=== PATIENT | male | born 1980 | race African-American/Black ===

== ENCOUNTER 2017-04-15 22:49 | Emergency (ER) | payer MEDICAID ==
[~2017-04-15 22:49] MED LIST: BUTATAB6 PEG; COMMODE 3-IN-11 MIS; FISH1000 PO; FOLI1TAB6 PO; GETGO ROLLING W1 MI1; LEVE500S PEG; PERC5TAB12 PO; PRAV40TA2 NG; WHEEMIS3; [UNRECOGNIZED DRUG - OTHER]
[2017-04-15 22:50] VITALS: BP 116/65; PULSE 108; RESP 16; TEMP 99.2; O2SAT 96
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
[2017-04-16] MEDS ORDERED: MORPHINE SULFATE 8 MG/ML INJ IM ONE (01:15)
[2017-04-16] MEDS ORDERED: MORPHINE SULFATE 4 MG/ML INJ IM ONE (01:45)
--- NOTE | 2017-04-16 02:26 | RADRPT ---
EXAM DATE/TIME: 04/16/2017 02:07 [place] COMPARISON: No previous studies available for comparison. INDICATIONS : G tube placement. MEDICAL HISTORY : Sickle Cell disease. SURGICAL HISTORY : Cholecystectomy. ENCOUNTER: Initial ACUITY: 1 day PAIN SCORE: 0/10 LOCATION: upper quadrant abdomen. FINDINGS: Single supine view of the abdomen demonstrates G-tube overlying the left upper quadrant. The recently injected contrast material fills the stomach. No leak is identified. No organomegaly or abnormal ben cifications are identified. Bones demonstrate no acute finding. Lung bases are clear. CONCLUSION: G-tube in expected position in the stomach. There is no leak. Gallito Keys MD on April 16, 2017 at 2:23 Board Certified Radiologist. This report was verified electronically.
== END 2017-04-16 02:30 | disposition home or self-care (01) ==
LOC: NEPD 22:49
DX: K94.20 Gastrostomy complication, unspecified (principal); F41.9 Anxiety disorder, unspecified; R00.0 Tachycardia, unspecified; K21.9 Gastro-esophageal reflux disease without esophagitis; I27.2 Other secondary pulmonary hypertension; F17.200 Nicotine dependence, unspecified, uncomplicated; Z79.899 Other long term (current) drug therapy
CPT/HCPCS: 43760; 74000; 96372; 99284; J2270

== ENCOUNTER 2018-03-17 16:27 | Inpatient (IN) | payer MEDICAID ==
[~2018-03-17] VITALS: Ht 188 cm; Wt 70.0 kg
[~2018-03-17 16:27] MED LIST changes: -FISH1000 PO
[2018-03-17 16:33] VITALS: BP 118/58; PULSE 108; RESP 16; TEMP 100.3; O2SAT 99
[2018-03-17] MEDS ORDERED: OXYC15TA PO (18:38)
[2018-03-17] MEDS ORDERED: GABA300C5 PO (18:38)
[2018-03-17 19:13] VITALS: O2SAT 88
[2018-03-17 19:15] VITALS: BP 131/61; PULSE 94; RESP 16; O2SAT 94
[2018-03-17] MEDS ORDERED: PRAV40TA2 PO (19:19)
[2018-03-17] MEDS ORDERED: LEVE500 PO (19:19)
[2018-03-17] MEDS ORDERED: BUTA1CAP PO (19:19)
[2018-03-17] MEDS ORDERED: SODIUM CHLORIDE 0.9% FLUSH 10 ML FLUSH IVF PRN (19:30)
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
[2018-03-17] MEDS ORDERED: SODIUM CHLOR 0.9% 250 ML INJ 250 ML IV ONE ×2 (19:45→20:30)
[2018-03-17 20:12] LABS: AUTOMATED NEUTROPHIL # 9.6 TH/MM3 (1.8-7.7); BASOPHIL # 0.2 TH/MM3 (0-0.2); BASOPHIL % 1.5 % (0.0-2.0); EOSINOPHIL # 0.2 TH/MM3 (0-0.4); LYMPH % 28.6 % (9.0-44.0); LYMPHOCYTE # 4.5 TH/MM3 (1.0-4.8); MEAN CELL VOLUME 91.8 FL (80.0-100.0); MEAN CORPUSCULAR HEMOGLOBIN 32.7 PG (27.0-34.0); MEAN CORPUSCULAR HGB CONC 35.6 % (32.0-36.0); MEAN PLATELET VOLUME 11.1 FL (7.0-11.0); MONO % 7.3 % (0.0-8.0); MONOCYTE # 1.1 TH/MM3 (0-0.9); NEUT % 61.6 % (16.0-70.0); PLATELET COUNT 200 TH/MM3 (150-450); RED BLOOD COUNT 1.64 MIL/MM3 (4.50-5.90); RED CELL DISTRIBUTION WIDTH 27.2 % (11.6-17.2); RETIC # 259.5 MIL/L (20.0-150.0); RETIC % 15.8 % (0.4-3.0); WHITE BLOOD COUNT 15.6 TH/MM3 (4.0-11.0)
[2018-03-17 20:13] LABS: INTERNATIONAL NORMALIZED RATIO 1.2 RATIO; PROTHROMBIN TIME - PATIENT 11.8 SEC (9.8-11.6)
[2018-03-17 20:19] LABS: ALT (GPT) 23 U/L (12-78)
[2018-03-17 20:20] LABS: ALBUMIN 3.6 GM/DL (3.4-5.0); AST (GOT) 59 U/L (15-37); BICARBONATE 25.6 MEQ/L (21.0-32.0); BLOOD UREA NITROGEN 15 MG/DL (7-18); CALCIUM 8.1 MG/DL (8.5-10.1); CHLORIDE 108 MEQ/L (98-107); CREATININE 0.96 MG/DL (0.60-1.30); GLOMERULAR FILTRATION RATE 106 ML/MIN (>89); GLUCOSE,RANDOM 106 MG/DL (74-106); MAGNESIUM 2.2 MG/DL (1.5-2.5); SODIUM (NA) 140 MEQ/L (136-145)
[2018-03-17 20:22] LABS: ALKALINE PHOSPHATASE 57 U/L (45-117); C-REACTIVE PROTEIN 0.54 MG/DL (0.00-0.30); TOTAL BILIRUBIN ADULT 2.2 MG/DL (0.2-1.0); TOTAL PROTEIN 6.7 GM/DL (6.4-8.2); TROPONIN I LESS THAN 0.02 NG/ML (0.02-0.05)
[2018-03-17 20:23] LABS: HEMATOCRIT 15.1 % (39.0-51.0); HEMOGLOBIN 5.4 GM/DL (13.0-17.0)
--- NOTE | 2018-03-17 20:28 | RADRPT ---
EXAM DATE: 03/17/2018 7:54 PM EDT AGE/SEX: 37 years / Male INDICATIONS: Short of breath. CLINICAL DATA: This is the patient's initial encounter. Patient reports that signs and symptoms have been present for 1 day and indicates a pain score of 0/10. MEDICAL/SURGICAL HISTORY: Sickle Cell disease. Hypertension. . Tracheostomy. COMPARISON: [facility] [place], CHEST SINGLE AP, 03/30/2017. . FINDINGS: A single AP view of the chest demonstrates the lungs to be symmetrically aerated without evidence of mass, infiltrate or effusion. The cardiomediastinal contours are unremarkable. Osseous structures a re intact. CONCLUSION: Negative examination. Electronically signed by: Lamont Grande MD 03/17/2018 8:27 PM EDT
[2018-03-17 20:49] LABS: BANDS 5 % (0-6); CORRECTED NUCLEATED RBC 6 /100 WBC (0-0); LYMPHOCYTES 30 % (9-44); METAMYELOCYTES 1 % (0-1); MONOCYTES 3 % (0-8); NEUTROPHIL # MANUAL DIFF 10.1 TH/MM3 (1.8-7.7); NUCLEATED RED BLOOD CELL 6 (0-0); POLYS (SEG NEUTROPHILS) 59 % (16-70)
[2018-03-17 20:51] LABS: OVALOCYTES 1+ (NORMAL); SICKLE CELLS 3+ (NORMAL)
[2018-03-17] MEDS ORDERED: IOHEXOL 350 MG/ML 10 ML VIAL (for RAD DIAG) IVCONTRAST ONE (21:18)
--- NOTE | 2018-03-17 21:40 | RADRPT ---
EXAM DATE: 03/17/2018 9:17 PM EDT AGE/SEX: 37 years / Male INDICATIONS: Chest pain. CLINICAL DATA: This is the patient's initial encounter. Patient reports that signs and symptoms have been present for 1 day and indicates a pain score of 8/10. MEDICAL/SURGICAL HISTORY: Hypertension. Sickle Cell disease. Gastroesophageal reflux disease. Cho lecystectomy. RADIATION DOSE: 8.51 CTDI (mGy) COMPARISON: No prior exams available for comparison. TECHNIQUE: Volumetric scanning was performed using a multi-row detector CT scanner during bolus infu stephany of 75 ml Omnipaque 350 (iohexol) nonionic water-soluble contrast as a cumulative dose for multi ple exams. The data was post processed with a variety of visualization algorithms including full volu me maximum intensity projection and sliding thin slab reformation. Using automated exposure control and adjustment of the mA and/or kV according to patient size, radiation dose was kept as low as reaso nably achievable to obtain optimal diagnostic quality images. DICOM format image data is available e lectronically for review and comparison. FINDINGS: The examination is of limited diagnostic quality due to bolus timing issues. There is no large or ivania tral pulmonary embolus. The third order and distal branches are not adequately visualized. The heart is normal in size. The thoracic aorta is intact. No hilar or mediastinal adenopathy is seen . No axillary adenopathy is identified. The visualized pulmonary parenchyma is clear. Incidental note is made of what is likely a sebaceous cyst along the left chest wall anteriorly measu ring 2.1 x 0.8 cm. The visualized bony structures are grossly intact. CONCLUSION: 1. The exam is somewhat limited due to bolus timing issues. No large or central pulmonary embolus is identified. The distal branches are not adequately visualized. 2. The lungs are clear. Electronically signed by: Lamont Grande MD 03/17/2018 9:39 PM EDT
[2018-03-17 21:53] LABS: BILIRUBIN, URINE NEG (NEG); BLOOD, URINE MOD (NEG); GLUCOSE,URINE NEG (NEG); KETONE, URINE NEG (NEG); NITRITE,URINE NEG (NEG); URINE COLOR YELLOW (YELLW/STRAW); URINE LEUKOCYTE ESTERASE NEG (NEG)
[2018-03-17 22:03] VITALS: BP 157/120; PULSE 105; RESP 16; TEMP 98.8; O2SAT 100
[2018-03-17 22:20] VITALS: BP 133/61; PULSE 89; RESP 16; TEMP 98.9; O2SAT 100
[2018-03-17] MEDS ORDERED: SODIUM CHLOR 0.9% 1000 ML INJ 1,000 ML IV SCH (22:28)
[2018-03-17] MEDS ORDERED: SENNOSIDES 8.6 MG TAB PO PRN (22:30)
[2018-03-17] MEDS ORDERED: SODIUM CHLORIDE 0.9% FLUSH 10 ML FLUSH IV FLUSH PRN (22:30)
[2018-03-17] MEDS ORDERED: MAGNESIUM HYDROXIDE SUSP 30 ML CUP PO PRN (22:30)
[2018-03-17] MEDS ORDERED: ACETAMINOPHEN 325 MG TAB PO PRN (22:30)
[2018-03-17] MEDS ORDERED: BISACODYL 10 MG SUPP RECTAL PRN (22:30)
[2018-03-17] MEDS ORDERED: LACTULOSE SYRUP 20 GM/30 ML CUP PO PRN (22:30)
[2018-03-17] MEDS ORDERED: ONDANSETRON ODT 4 MG TAB PO PRN (22:30)
[2018-03-17] MEDS ORDERED: NALOXONE HCL 0.4 MG/ML AMP IV PUSH PRN (22:30)
--- NOTE | 2018-03-17 22:45 | HHI.HP ---
[facility] Service [facility] Primary Care Physician Severiano Patel D.O. Admission Diagnosis Sickle cell anemia, symptomatic anemia, cp r/o acs vs pe Diagnoses: Travel History International Travel<30 Days: No Contact w/Intl Traveler <30 Da: No Traveled to Known Affected Are: No History of Present Illness 37-year-old male with a past medical history significant for sickle cell disease and seizure disorder presents the emergency department for evaluation of fatigue. The patient reports he has been feeling tired and sluggish 1 week. He denies any dizziness or associated lightheadedness. He reports a pain /pressure that he describes as a cramping sensation in his left chest and upper shoulder. The patient also complains of a chronic ulcer on his left ankle. He denies any shortness of breath. No abdominal pain. No nausea/vomiting/ diarrhea. No fever/chills Review of Systems Except as stated in HPI: all other systems reviewed are Neg Past Family Social History Past Medical History Sickle cell disease Seizure disorder Past Surgical History Reconstructive facial surgery Several incision and drainages Cholecystectomy Craniotomy for aneurysm repair Reported Medications Reported Meds & Active Scripts Active Folic Acid 1 Mg Tablet 1 Mg PO DAILY Reported Pravastatin 40 Mg Tab 40 Mg PO DAILY Keppra (Levetiracetam) 500 Mg Tab 500 Mg PO BID Fioricet (Efpmmjozpa-Bzzeldvsaqqvr-Jyibfnfa) 50-300-40 Mg Cap 1 Cap PO Q4H PRN Gabapentin 300 Mg Cap 300 Mg PO BID Oxycodone (Oxycodone HCl) 15 Mg Tab 15 Mg PO Q6HR Allergies: Coded Allergies: No Known Allergies (Verified Adverse Reaction, Unknown, 03/17/18) Family History Mother with diabetes mellitus Social History Smokes marijuana daily. Denies alcohol and tobacco. Physical Exam Vital Signs Vital Signs Date Time Temp Pulse Resp B/P (MAP) Pulse Ox O2 Delivery O2 Flow Rate FiO2 03/17/18 22:20 98.9 89 16 133/61 100 03/17/18 22:03 98.8 105 16 157/120 100 03/17/18 19:15 94 16 131/61 (84) 94 Nasal Cannula 2.00 6/26/18 19:13 88 Room Air 03/17/18 18:39 92 17 98 Room Air 03/17/18 16:33 100.3 108 16 118/58 (78) 99 Physical Exam GENERAL: -[place] male sitting up in bed SKIN: 3 cm ulceration to the lateral aspect of the left ankle that is dry and nondraining. No surrounding erythema or fluctuance. HEAD: Atraumatic. Normocephalic. No temporal or scalp tenderness. EYES: Pupils equal round and reactive. Extraocular motions intact. No scleral icterus. No injection or drainage. ENT: Nose without bleeding, purulent drainage or septal hematoma. Throat without erythema, tonsillar hypertrophy or exudate. Uvula midline. Airway patent. NECK: Trachea midline. No JVD or lymphadenopathy. Supple, nontender, no meningeal signs. CARDIOVASCULAR: Regular rate and rhythm without murmurs, gallops, or rubs. RESPIRATORY: Clear to auscultation. Breath sounds equal bilaterally. No wheezes , rales, or rhonchi. GASTROINTESTINAL: Abdomen soft, non-tender, nondistended. No hepato-splenomegaly , or palpable masses. No guarding. MUSCULOSKELETAL: Extremities without clubbing, cyanosis, or edema. No joint tenderness, effusion, or edema noted. No calf tenderness. NEUROLOGICAL: Awake and alert. Cranial nerves II through XII intact. Motor and sensory grossly within normal limits. Normal speech. Laboratory Laboratory Tests Test 03/17/18 18:50 03/17/18 21:20 White Blood Count 15.6 Red Blood Count 1.64 Hemoglobin 5.4 Hematocrit 15.1 Mean Corpuscular Volume 91.8 Mean Corpuscular Hemoglobin 32.7 Mean Corpuscular Hemoglobin Concent 35.6 Red Cell Distribution Width 27.2 Platelet Count 200 Mean Platelet Volume 11.1 Neutrophils (%) (Auto) 61.6 Lymphocytes (%) (Auto) 28.6 Monocytes (%) (Auto) 7.3 Eosinophils (%) (Auto) 1.0 Basophils (%) (Auto) 1.5 Neutrophils # (Auto) 9.6 Lymphocytes # (Auto) 4.5 Monocytes # (Auto) 1.1 Eosinophils # (Auto) 0.2 Basophils # (Auto) 0.2 CBC Comment AUTO DIFF Differential Total Cells Counted 100 Neutrophils % (Manual) 59 Band Neutrophils % 5 Lymphocytes % 30 Monocytes % 3 Eosinophils % 2 Neutrophils # (Manual) 10.1 Metamyelocytes 1 Nucleated Red Blood Cells 6 Differential Comment FINAL DIFF MANUAL Platelet Estimate NORMAL Platelet Morphology Comment ENLARGED Polychromasia 12.0 Spherocytes Sickle Cells 3+ Ovalocytes 1+ Reticulocyte Count 15.8 Absolute Reticulocyte Count 259.5 Prothrombin Time 11.8 Prothromb Time International Ratio 1.2 Activated Partial Thromboplast Time 23.4 Blood Urea Nitrogen 15 Creatinine 0.96 Random Glucose 106 Total Protein 6.7 Albumin 3.6 Calcium Level 8.1 Magnesium Level 2.2 Alkaline Phosphatase 57 Aspartate Amino Transf (AST/SGOT) 59 Alanine Aminotransferase (ALT/SGPT) 23 Total Bilirubin 2.2 Sodium Level 140 Potassium Level 4.4 Chloride Level 108 Carbon Dioxide Level 25.6 Anion Gap 6 Estimat Glomerular Filtration Rate 106 Total Creatine Kinase 41 Troponin I LESS THAN 0.02 C-Reactive Protein 0.54 B-Type Natriuretic Peptide 61 Lipase 67 Urine Color YELLOW Urine Turbidity CLEAR Urine pH 6.0 Urine Specific [place] 1.003 Urine Protein 100 Urine Glucose (UA) NEG Urine Ketones NEG Urine Occult Blood MOD Urine Nitrite NEG Urine Bilirubin NEG Urine Urobilinogen LESS THAN 2 Urine Leukocyte Esterase NEG Microscopic Urinalysis Comment CULT NOT INDICATED Date/Time Source Procedure Growth Status 03/17/18 21:30 Blood Peripheral Aerobic Blood Culture Pending Received 03/17/18 21:30 Blood Peripheral Anaerobic Blood Culture Pending Received 03/17/18 19:25 Wound Ankle Gram Stain Pending Received 03/17/18 19:25 Wound Ankle Wound Culture Pending Received Result Diagram: 03/17/[id number]/17/[id number] Caprini VTE Risk Assessment Caprini VTE Risk Assessment: No/Low Risk (score <= 1) Caprini Risk Assessment Model Point Value = 1 Point Value = 2 Point Value = 3 Point Value = 5 Age 41-60 Minor surgery BMI > 25 kg/m2 Swollen legs Varicose veins or History of unexplained or recurrent spontaneous Oral contraceptives or hormone replacement Sepsis (< 1 month) Serious lung disease, including pneumonia (< 1 month) Abnormal pulmonary function Acute myocardial infarction Congestive heart failure (< 1 month) History of inflammatory bowel disease Medical patient at bed rest Age 61-74 Arthroscopic surgery Major open surgery (> 45 min) Laparoscopic surgery (> 45 min) Malignancy Confined to bed (> 72 hours) Immobilizing plaster cast Central venous access Age >= 75 History of VTE Family history of VTE Factor V Leiden Prothrombin [id number] Lupus anticoagulant Anticardiolipin antibodies Elevated serum homocysteine Heparin-induced thrombocytopenia Other congenital or acquired thrombophilia Stroke (< 1 month) Elective arthroplasty Hip, pelvis, or leg fracture Acute spinal cord injury (< 1 month) Prophylaxis Regimen Total Risk Factor Score Risk Level Prophylaxis Regimen 0-1 Low Early ambulation 2 Moderate Order ONE of the following: *Sequential Compression Device (SCD) *Heparin 5000 units SQ BID 3-4 Higher Order ONE of the following medications: *Heparin 5000 units SQ TID *Enoxaparin/Lovenox 40 mg SQ daily (WT < 150 kg, CrCl > 30 mL/min) *Enoxaparin/Lovenox 30 mg SQ daily (WT < 150 kg, CrCl > 10-29 mL/min) *Enoxaparin/Lovenox 30 mg SQ BID (WT < 150 kg, CrCl > 30 mL/min) AND/OR *Sequential Compression Device (SCD) 5 or more Highest Order ONE of the following medications: *Heparin 5000 units SQ TID (Preferred with Epidurals) *Enoxaparin/Lovenox 40 mg SQ daily (WT < 150 kg, CrCl > 30 mL/min) *Enoxaparin/Lovenox 30 mg SQ daily (WT < 150 kg, CrCl > 10-29 mL/min) *Enoxaparin/Lovenox 30 mg SQ BID (WT < 150 kg, CrCl > 30 mL/min) AND *Sequential Compression Device (SCD) Assessment and Plan Assessment and Plan Assessment/plan: 1. Symptomatic anemia H&H 5.4/15.1 Transfuse 2 units packed red blood cells 2. Chest pain Initial troponin negative EKG showed normal sinus rhythm without ST segment elevations or depressions, personally reviewed ACS rule out pending; serial troponins/EKGs 3. Seizure disorder Continue home Keppra 4. Sickle cell disease Continue pain control with home oxycodone Continue folic acid FEN Regular diet Electrolytes: Monitor and replete as needed Physician Certification 2 Midnight Certification Type: Admission for Inpatient Services Order for Inpatient Services The services are ordered in accordance with Medicare regulations or non- Medicare payer requirements, as applicable. In the case of services not specified as inpatient-only, they are appropriately provided as inpatient services in accordance with the 2-midnight benchmark. Estimated LOS (days): 2 2 days is the estimated time the patient will need to remain in the hospital, assuming treatment plan goals are met and no additional complications. Post-Hospital Plan: Not yet determined Margarita Cartagena MD Mar 17, 2018 22:45
[2018-03-17 23:08] VITALS: BP 105/53; PULSE 92; RESP 16; O2SAT 100
[2018-03-18] VITALS: BP 135/63; PULSE 78; RESP 17; TEMP 98.4; O2SAT 98
[2018-03-18 00:35] VITALS: BP 135/62; PULSE 77; RESP 18; TEMP 98.5; O2SAT 97
[2018-03-18 01:13] VITALS: BP 125/58; PULSE 78; RESP 18; TEMP 98.8; O2SAT 98
[2018-03-18 01:32] VITALS: BP 140/65; PULSE 75; RESP 20; TEMP 98.5; O2SAT 100
[2018-03-18] MEDS ORDERED: PRAVASTATIN SOD 40 MG TAB PO SCH (09:00)
[2018-03-18] MEDS ORDERED: FOLIC ACID 1 MG TAB PO SCH (09:00)
[2018-03-18] MEDS ORDERED: GABAPENTIN 300 MG CAP PO SCH (09:00)
[2018-03-18] MEDS ORDERED: SODIUM CHLORIDE 0.9% FLUSH 10 ML FLUSH IV FLUSH SCH (09:00)
[2018-03-18] MEDS ORDERED: levETIRAcetam 500 MG TAB PO SCH (09:00)
[2018-03-18] MEDS ORDERED: DOCUSATE SODIUM 50 MG/SENNA 8.6 MG TAB PO SCH (09:00)
--- NOTE | 2018-03-18 20:50 | EKG ---
Date Performed: 03/17/2018 Time Performed: 20:21:48 PTAGE: 37 years EKG: Sinus rhythm NONSPECIFIC T-WAVE ABNORMALITY ABNORMAL ECG NO PREVIOUS TRACING DOCTOR: Aimee Pierre Interpretating Date/Time 03/18/2018 20:49:18
== END 2018-03-18 03:00 | disposition left against medical advice (07) | DRG 812 ==
LOC: NEPC 16:27 → NEDA 20:46 → N07B 23:21
PROVIDERS: ADMIT Family Medicine; ATTEND Family Medicine
PROC: 30233N1 Transfusion of Nonautologous Red Blood Cells into Peripheral Vein, Percutaneous Approach (ICD-10-PCS; principal; 2018-03-17)
DX: D57.1 Sickle-cell disease without crisis (principal); E78.5 Hyperlipidemia, unspecified; F12.90 Cannabis use, unspecified, uncomplicated; G40.909 Epilepsy, unspecified, not intractable, without status epilepticus; R07.9 Chest pain, unspecified; K21.9 Gastro-esophageal reflux disease without esophagitis
CPT/HCPCS: 36430; 71045; 71275; 80053; 81001; 82550; 83690; 83735; 83880; 84484; 85007; 85027; 85044; 85610; 85730; 86140; 86403; 86850; 86900; 86901; 86920; 87040; 87070; 87077; 87186; 87205; 93005; J7050; P9016; Q9967

== ENCOUNTER 2018-09-13 23:02 | Inpatient (IN) ==
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
[2018-09-14] MEDS ORDERED: HYDROmorphone PF Inj 1 MG/ML Ampul IV.PUSH ONE (00:23)
[2018-09-14] MEDS ORDERED: Sod Chloride 0.9% Inj 1,000 ML IV.SIG SCH (00:30)
--- NOTE | 2018-09-14 00:48 | XR ---
EXAM DATE: 09/14/2018 12:44 AM EST AGE/SEX: 37 years / Male INDICATIONS: Sickle cell crisis. Weakness. CLINICAL DATA: This is the patient's subsequent encounter. Patient reports that signs and symptoms h ave been present for 1 day and indicates a pain score of 6/10. MEDICAL/SURGICAL HISTORY: Sickle Cell disease. None. COMPARISON: [facility] – [place], 03/17/2018. . FINDINGS: Minimal linear opacities noted in the lower lung zones bilaterally. The cardiomediastinal contours ar e stable. Osseous structures are intact. CONCLUSION: 1. Minimal probable atelectasis in the lower lung zones bilaterally. Electronically signed by: Checo Best MD Board Certified Radiologist 09/14/2018 12:[address]
[2018-09-14 01:01] LABS: Baso # (Auto) 0.2 th/mm3 (0.0-0.2); Baso % (Auto) 0.9 % (0.0-2.0); Eos # (Auto) 0.1 th/mm3 (0.0-0.4); Eos % (Auto) 0.6 % (0.0-4.0); Lymph # (Auto) 4.2 th/mm3 (1.0-4.8); Lymph % (Auto) 20.7 % (9.0-44.0); Mean Corpuscular HGB Conc 35.7 % (32.0-36.0); Mean Corpuscular Hemoglobin 36.1 pg (27.0-34.0); Mean Corpuscular Volume 101.2 fL (80.0-100.0); Mean Platelet Volume 10.5 fL (7.0-11.0); Mono # (Auto) 1.6 th/mm3 (0.0-0.9); Mono % (Auto) 7.8 % (0.0-8.0); Neut # (Auto) 14.1 th/mm3 (1.8-7.7); Platelet Count 204 th/mm3 (150-450); Red Blood Count 1.52 mil/mm3 (4.50-5.90); Red Cell Distribution Width 29.7 % (11.6-17.2); White Blood Count 20.2 th/mm3 (4.0-11.0)
[2018-09-14 01:09] LABS: Hematocrit 15.4 % (39.0-51.0); Hemoglobin 5.5 gm/dL (13.0-17.0)
[2018-09-14 01:20] LABS: Alkaline Phosphatase 71 U/L (45-117); Total Protein 6.7 g/dL (6.4-8.2)
[2018-09-14 01:21] LABS: Alanine Aminotransferase 34 U/L (12-78); Albumin 3.4 g/dL (3.4-5.0); Anion Gap 3 meq/L (5-15); Aspartate Aminotransferase 66 U/L (15-37); Blood Urea Nitrogen 14 mg/dL (7-18); Calcium 8.2 mg/dL (8.5-10.1); Carbon Dioxide 30.2 meq/L (21.0-32.0); Chloride 105 meq/L (98-107); Glomerular Filtration Rate Greater Than 89 mL/min (>89); Glucose,Random 101 mg/dL (74-106); Potassium 4.9 meq/L (3.5-5.1); Sodium 138 meq/L (136-145)
[2018-09-14 01:32] LABS: Eosinophils 1 % (0-4); Lymphocytes 22 % (9-44); Monocytes 4 % (0-8); Myelocytes 1 % (0-0); Tallied Nucleated RBC 18 (0-0)
[2018-09-14 01:37] LABS: Howell-Jolly Bodies Present; Polychromasia 4.9 % (0.0-1.9); Sickle Cells 3+; Target Cells 1+
[2018-09-14 01:40] LABS: Ovalocytes 1+
[2018-09-14 01:41] LABS: Platelet Estimate Normal (Normal)
[2018-09-14] MEDS ORDERED: Sodium Chlor 0.9% Inj 250 ML IV.SIG SCH (02:00)
[2018-09-14] MEDS ORDERED: Acetaminophen 325 MG Tablet PO PRN (02:46)
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
[2018-09-14 04:49] LABS: Bilirubin,Urine Negative (Negative); Clarity,Urine Clear (Clear); Color,Urine Yellow (Yellw/Straw); Glucose,Urine (UA) Negative (Negative); Leukocyte Esterase,Urine Negative (Negative); Mucus,Urine Few /lpf (Occasional); Nitrite,Urine Negative (Negative); Specific Gravity,Urine 1.004 (1.002-1.035)
[2018-09-14] MEDS: HYDROmorphone PF Inj 2 MG/ML Vial IV.PUSH PRN ×4 (05:06→19:33)
[2018-09-14] MEDS: Folic Acid 1 MG Tablet PO SCH (08:37)
[2018-09-14] MEDS: Hydroxyurea 500 MG Capsule PO SCH ×2 (08:37→21:45)
[2018-09-14] MEDS: Gabapentin 300 MG Capsule PO SCH ×2 (08:38→21:45)
[2018-09-14] MEDS ORDERED: Influenza (Quadrivalent) Vaccine 0.5 ML Syringe IM ONE (09:00)
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
[2018-09-14] MEDS ORDERED: Sodium Chloride 0.45 % Inj 1,000 ML IV.CONT SCH (13:30)
[2018-09-14] MEDS ORDERED: Heparin - SQ 10,000 UNITS/ML Vial SQ SCH (14:00)
--- NOTE | 2018-09-14 16:12 | P.PNADD ---
Addendum to Inpatient Note Reason for Addendum: Additional Documentation Additional information: Patient sitting in bed, awake and alert. Has a chronic ulcer on the lateral aspect of his left ankle with no obvious drainage or erythema Clear lungs bilaterally, unlabored breathing Heart sounds regular rate and rhythm, no murmurs Continue pain control for sickle cell crisis
[2018-09-14] MEDS ORDERED: NIFEdipine 10 MG Capsule PO ONE (19:00)
[2018-09-14] MEDS: NIFEdipine 10 MG Capsule PO SCH (22:16)
[2018-09-15] MEDS: HYDROmorphone PF Inj 2 MG/ML Vial IV.PUSH PRN ×3 (01:17→09:51)
[2018-09-15 07:09] LABS: Baso # (Auto) 0.1 th/mm3 (0.0-0.2); Baso % (Auto) 0.7 % (0.0-2.0); Eos # (Auto) 0.3 th/mm3 (0.0-0.4); Eos % (Auto) 2.3 % (0.0-4.0); Lymph # (Auto) 3.3 th/mm3 (1.0-4.8); Lymph % (Auto) 27.2 % (9.0-44.0); Mean Corpuscular Hemoglobin 36.3 pg (27.0-34.0); Mean Corpuscular Volume 100.3 fL (80.0-100.0); Mean Platelet Volume 10.4 fL (7.0-11.0); Mono # (Auto) 0.8 th/mm3 (0.0-0.9); Mono % (Auto) 6.8 % (0.0-8.0); Neut # (Auto) 7.8 th/mm3 (1.8-7.7); Platelet Count 201 th/mm3 (150-450); Red Blood Count 2.08 mil/mm3 (4.50-5.90); Red Cell Distribution Width 25.5 % (11.6-17.2); White Blood Count 12.3 th/mm3 (4.0-11.0)
[2018-09-15 07:24] LABS: Mean Corpuscular HGB Conc 36.2 % (32.0-36.0)
[2018-09-15 07:27] LABS: Hematocrit 20.9 % (39.0-51.0); Hemoglobin 7.6 gm/dL (13.0-17.0)
[2018-09-15 07:33] LABS: Anion Gap 5 meq/L (5-15); Blood Urea Nitrogen 13 mg/dL (7-18); Calcium 7.9 mg/dL (8.5-10.1); Carbon Dioxide 29.7 meq/L (21.0-32.0); Chloride 107 meq/L (98-107); Glomerular Filtration Rate Greater Than 89 mL/min (>89); Glucose,Random 92 mg/dL (74-106); Potassium 4.4 meq/L (3.5-5.1); Sodium 142 meq/L (136-145)
--- NOTE | 2018-09-15 08:40 | P.PN ---
Subjective Interval history: Follow up for sickle cell crisis with anemia. Patient reports feeling much better today. He states his pain is back to his baseline. He denies any significant chest pain or shortness of breath. Denies any fevers or chills. He is requesting be discharged. Discussed his elevated blood pressures, he believes this is secondary to pain and he has never had any blood pressure issues prior to this visit. Instructed the patient to check his blood pressures after discharge and keep a log, report to PCP. We will also give the patient prescription for Norvasc, discussed with the patient. He states he is established with a PCP and with his potash flaker Dr. Patterson. Physical Exam Vital signs: Vital Signs 09/14/18 08:44 09/14/18 20:00 09/15/18 00:00 Temperature 97.6 F 99.3 F 97.6 F Pulse Rate 90 88 82 Respiratory Rate 18 20 18 Blood Pressure 166/82 H 153/87 H 134/67 Pulse Oximetry 95 95 97 09/15/18 04:00 09/15/18 04:52 Temperature 97.4 F L Pulse Rate 76 78 Respiratory Rate 18 Blood Pressure 151/67 H Pulse Oximetry 95 Intake & Output 09/14/18 09/15/18 09/15/18 18:59 06:59 18:59 Intake Total 250 / 250 Output Total 900 / 900 Balance 250 / 250 -900 / -900 Weight 97.4 kg Intake: IV 250 / 250 NS Inj 250 ML @ 15 mls/hr IV. 250 / 250 SIG ONCE [facility] Rx#:[id number] Output: Urine 900 / 900 Other: # Voids 1 Date of Last Bowel Movement 09/13/18 Narrative: GENERAL: Well-nourished tall thin AA male patient in NAD SKIN: Warm and dry. HEAD: Normocephalic. Atraumatic. EYES: No scleral icterus. No injection or drainage. Left eye closed shut. NECK: Supple, trachea midline. No JVD or lymphadenopathy. CARDIOVASCULAR: Regular rate and rhythm without murmurs, gallops, or rubs. RESPIRATORY: Breath sounds equal bilaterally. No accessory muscle use. GASTROINTESTINAL: Abdomen soft, non-tender, nondistended. Normoactive bowel sounds x4. MUSCULOSKELETAL: No cyanosis, or edema. Moving all extremities spontaneously. Results - Labs CBC & Chem 7: 09/15/18 05:51 09/15/18 05:51 Laboratory Results - last 24 hr 09/15/18 09/15/18 05:51 05:51 WBC 12.3 H RBC 2.08 L Hgb 7.6 L D Hct 20.9 L* MCV 100.3 H MCH 36.3 H MCHC 36.2 H RDW 25.5 H D Plt Count 201 MPV 10.4 Prelim Diff (Auto) Slide review pending Neut % (Auto) 63.0 Lymph % (Auto) 27.2 [place] % (Auto) 6.8 Eos % (Auto) 2.3 Baso % (Auto) 0.7 Neut # (Auto) 7.8 H Lymph # (Auto) 3.3 [place] # (Auto) 0.8 Eos # (Auto) 0.3 Baso # (Auto) 0.1 Differential Comment . Sodium 142 Potassium 4.4 Chloride 107 Carbon Dioxide 29.7 Anion Gap 5 BUN 13 Creatinine 0.77 Estimated GFR Greater than 89 Random Glucose 92 Calcium 7.9 L - Imaging Chest X-Ray 09/14/18 00:23 CONCLUSION: 1. Minimal probable atelectasis in the lower lung zones bilaterally. Assessment and Plan - Plan 37-year-old male with a history of sickle cell anemia resented to the ED with complaints of pain all over that is similar to his sickle cell crisis. Sickle cell crisis, Hemoglobin 5.5 -S/p 2u pRBC transfusion -Resume home meds including hydroxyurea and folic acid -IV Dilaudid for pain management -Consult hematology, appreciate assistance -Repeat Hgb 7.6 today -Symptoms much improved, stable for discharge. Leukocytosis: WBC 20.2K, likely reactive and secondary to pain -Chest x-ray reviewed and unremarkable -IV Rocephin given in the ER -No source, hold on antibiotics -Repeat CBC improving with WBC 12K -Afebrile, stable for discharge Hypertension: BPs have been significantly elevated throughout admission, possibly exacerbated by pain -Will discharge patient with Norvasc 10 mg daily -Educated the patient to keep a BP log and report to PCP. DVT prophylaxis: SCDs; Avoid chemical prophylaxis with anemia Discharge Planning: Discharge patient to home Condition on discharge: Stable Regular Diet as tolerated Ad [place] activity Rx written: Norvasc 10 mg daily Follow-up with primary care physician and hematology
[2018-09-15] MEDS: Hydroxyurea 500 MG Capsule PO SCH (09:47)
[2018-09-15] MEDS: NIFEdipine 10 MG Capsule PO SCH (09:47)
[2018-09-15] MEDS: Folic Acid 1 MG Tablet PO SCH (09:47)
[2018-09-15] MEDS: Gabapentin 300 MG Capsule PO SCH (09:47)
--- NOTE | 2018-09-15 10:41 | P.PNONC ---
Subjective Interval history: Resting comfortably in bedside chair. Pain improved. Objective Vital Signs/Intake & Output: Vital Signs 09/14/18 20:00 09/15/18 00:00 09/15/18 04:00 Temperature 99.3 F 97.6 F 97.4 F L Pulse Rate 88 82 76 Respiratory Rate 20 18 18 Blood Pressure 153/87 H 134/67 151/67 H Pulse Oximetry 95 97 95 09/15/18 04:52 09/15/18 08:00 Temperature 97.8 F Pulse Rate 78 79 Respiratory Rate 20 Blood Pressure 162/74 H Pulse Oximetry 92 L Intake & Output 09/14/18 09/15/18 09/15/18 18:59 06:59 18:59 Intake Total 250 / 250 Output Total 900 / 900 Balance 250 / 250 -900 / -900 Weight 97.4 kg Intake: IV 250 / 250 NS Inj 250 ML @ 15 mls/hr IV. 250 / 250 SIG ONCE [facility]ISS Rx#:[id number] Output: Urine 900 / 900 Other: # Voids 1 Date of Last Bowel Movement 09/13/18 Result Diagrams: 09/15/18 05:51 09/15/18 05:51 Laboratory Results: Laboratory Results - last 24 hr 09/15/18 09/15/18 05:51 05:51 WBC 12.3 H RBC 2.08 L Hgb 7.6 L D Hct 20.9 L* MCV 100.3 H MCH 36.3 H MCHC 36.2 H RDW 25.5 H D Plt Count 201 MPV 10.4 Prelim Diff (Auto) Slide review pending Neut % (Auto) 63.0 Lymph % (Auto) 27.2 [place] % (Auto) 6.8 Eos % (Auto) 2.3 Baso % (Auto) 0.7 Neut # (Auto) 7.8 H Lymph # (Auto) 3.3 [place] # (Auto) 0.8 Eos # (Auto) 0.3 Baso # (Auto) 0.1 Differential Comment . Sodium 142 Potassium 4.4 Chloride 107 Carbon Dioxide 29.7 Anion Gap 5 BUN 13 Creatinine 0.77 Estimated GFR Greater than 89 Random Glucose 92 Calcium 7.9 L Medications: Active Medications Generic Name Dose Route Start Last Admin Trade Name Freq PRN Reason Stop Dose Admin Folic Acid 1 mg 09/14/18 09:00 09/15/18 09:47 Folic Acid PO 1 mg DAILY [facility]ISS Administration Gabapentin 300 mg 09/14/18 09:00 09/15/18 09:47 Neurontin PO 300 mg BID [facility]ISS Administration Hydromorphone HCl 1 mg 09/14/18 02:51 09/15/18 09:51 Dilaudid Pf Inj IV.PUSH 1 mg Q4H PRN Administration PAIN 1-10 AND/OR FEVER >101F Hydroxyurea 500 mg 09/14/18 09:00 09/15/18 09:47 Hydrea PO 500 mg BID CH[facility]ISS Administration Sodium Chloride 1,000 mls @ 50 mls/hr 09/14/18 13:30 09/14/18 14:03 1/2 Normal Saline Inj IV.CONT 50 mls/hr .Q20H CHRISS Administration Nifedipine 10 mg 09/14/18 21:00 09/15/18 09:47 Procardia PO 10 mg QID [facility]RISS Administration Pravastatin Sodium 40 mg 09/14/18 09:00 09/15/18 09:47 Pravachol PO 40 mg DAILY [facility]ISS Administration Sodium Chloride 2 ml 09/14/18 09:00 09/15/18 09:48 Ns Flush IV.FLUSH 2 ml BID CHRISS Administration Objective Remarks: GENERAL: Well-nourished, well-developed patient. SKIN: Warm and dry. HEAD: Normocephalic. CARDIOVASCULAR: Regular rate and rhythm without murmurs. RESPIRATORY: No accessory muscle use. GASTROINTESTINAL: Abdomen soft, non-tender, nondistended. EXTREMITIES: No cyanosis, or edema. MUSCULOSKELETAL: Adequate muscle tone. NEUROLOGICAL: No obvious focal deficit. Awake, alert, and oriented x3. PSYCHIATRIC: Appropriate mood and affect; insight and judgment normal. Assessment/Plan - Plan 1. hemoglobin SS disease: Continue hydroxyurea and folic acide 2. Acute pain crisis: pain improved, discharged planned today. 3. Anemia: baseline hemoglobin 5.5. s/p transfusion of 2 units of PRBC. He will need close follow up in clinic with primary acid tester Dr. Patterson.
[2018-09-15 11:15] LABS: Eosinophils 1 % (0-4); Lymphocytes 25 % (9-44); Monocytes 10 % (0-8); Myelocytes 1 % (0-0); Tallied Nucleated RBC 22 (0-0)
[2018-09-15 11:16] LABS: Platelet Estimate Normal (Normal); Platelet Morphology Normal (Normal); Sickle Cells 2+
[2018-09-15 11:17] LABS: Howell-Jolly Bodies Present; Polychromasia 4.6 % (0.0-1.9)
[2018-09-15 11:18] LABS: Target Cells 1+
== END 2018-09-15 11:58 | disposition home or self-care (01) ==
LOC: NEPE 23:02 → NEDA 09-14 01:33 → N06 09-14 04:48 → N05 09-14 09:42
PROVIDERS: ADMIT Internal Medicine; ATTEND Internal Medicine